=== PATIENT | female | born 1980 ===

== ENCOUNTER → 2022-12-30 | Emergency (ER) | payer OTHER ==
[~2022-12-30] VITALS: Ht 154.9 cm; Wt 63.5 kg
[~2022-12-30] MED LIST: AZOR 10-20 MG1 EACH PO; CLONAZEPAM0.5 M1 PO
== END | disposition home or self-care (01) ==
LOC: ER 08:09
DX: K29.70 Gastritis, unspecified, without bleeding (principal)